=== PATIENT | female | born 1955 | race Hispanic/Latino ===

== ENCOUNTER 2016-09-29 10:06 | Emergency (ER) | payer MEDICARE ==
[2016-09-29 10:51] LABS: Basophils % (Auto) 0.8 % (0.0-1.8); Eosinophils % (Auto) 4.7 % (0.0-4.3); Hemoglobin 12.8 gm/dl (10.1-14.3); Mean Corpuscular HGB Conc 34 % (30-34); Mean Corpuscular Hemoglobin 32 pg (28-32); Mean Corpuscular Volume 94 fl (79-97); Platelet Count 254 K/mm3 (140-440); Red Blood Count 4.03 M/mm3 (3.65-5.03); Red Cell Distribution Width 13.3 % (13.2-15.2); White Blood Count 8.6 K/mm3 (4.5-11.0)
[2016-09-29 11:10] LABS: Bacteria,Urine 1+ /HPF (Negative); Bilirubin,Urine NEG (Negative); Blood,Urine NEG (Negative); Ketones,Urine NEG (Negative); Leukocyte Esterase,Urine NEG (Negative); Nitrite,Urine NEG (Negative); Protein,Urine <15 mg/dL mg/dL (Negative); RBC,Urine < 1.0 /HPF (0.0-6.0); Urobilinogen,Urine < 2.0 mg/dL (<2.0)
[2016-09-29] MEDS ORDERED: DELTASONE PO ONE (11:33)
[2016-09-29] MEDS ORDERED: TORADOL IM ONE (11:33)
[2016-09-29] MEDS ORDERED: CATAPRES PO ONE (11:33)
--- NOTE | 2016-09-29 12:12 | Emergency Department Report ---
ED Back Pain/Injury HPI - General Chief Complaint: Back Pain/Injury Stated Complaint: NECK AND BACK PAIN Time Seen by Provider: 09/29/16 11:08 Source: patient Limitations: No Limitations - History of Present Illness Initial Comments: Reports she is not always taking her prescribed Morphine Complaint: back pain -: Gradual, week(s) Similar Symptoms Previously: Yes Place: home Radiation: none Severity: mild Severity scale (0 -10): 2 Quality: aching Consistency: intermittent Improves With: none Worsens With: movement Context: turning/twisting Associated Symptoms: denies: confusion, weakness, chest pain, numbness, difficulty walking, cough, difficulty urinating, diaphoresis, incontinence, constipation, headaches, abdominal pain, loss of appetite, malaise, nausea/ vomiting, rash, seizure, shortness of breath, syncope - Related Data Home Medications Medication Instructions Recorded Confirmed Last Taken ALPRAZolam [Alprazolam] 2 mg PO TID PRN 03/26/13 09/29/16 09/28/16 Aspirin [Baby Aspirin] 81 mg PO DAILY 03/26/13 09/29/16 09/29/16 Morphine Sulfate [Morphine Sulfate 15 mg PO QID 03/26/13 09/29/16 09/29/16 ER] Previous Rx's Medication Instructions Recorded Last Taken Type Lisinopril [Zestril TAB] 40 mg PO QDAY #90 tablet 12/20/13 09/29/16 Rx predniSONE [Deltasone] 20 mg PO QDAY #3 tab 09/29/16 Unknown Rx Allergies Allergy/AdvReac Type Severity Reaction Status Date / Time codeine AdvReac Itching Verified 03/26/13 10:59 ED Review of Systems ROS: Stated complaint: NECK AND BACK PAIN Other details as noted in HPI Other: GENERAL: No weight change, fatigue, weakness, fever, chills, or night sweats SKIN: No changes in skin or hair, no itching, no rashes, no jaundice HEAD: No trauma, headache, or visual changes EYES: No blurriness, tearing, itching, acute visual loss, conjunctival discoloration, or scleral icterus EARS: No hearing loss, tinnitus, vertigo, or earache NOSE: No rhinorrhea, stuffiness, sneezing, itching, or epistaxis MOUTH: No bleeding gums, hoarseness, sore throat, or swelling CARDIAC: No new murmur, chest pain, palpitations, dyspnea on exertion, orthopnea , PND, or edema RESPIRATORY: No shortness of breath, wheeze, cough, sputum production, hemoptysis, pneumonia, asthma, bronchitis, or emphysema GI: No change in appetite, nausea, vomiting, dysphagia, change in bowel frequency, diarrhea, constipation, bleeding, hematemesis, melena, hematochezia, or abdominal pain URINARY: No frequency, urgency, polyuria, dysuria, hematuria, or incontinence MUSCULOSKELETAL: exacerbation of Back Pain chronic NEUROLOGIC: No loss of sensation, numbness, tingling, tremors, weakness, paralysis, seizures HEMATOLOGIC: No anemia, easy bruising, bleeding, petechiae, or purpura ENDOCRINE: No hot or cold intolerance, sweating, polyuria, polydipsia or, polyphagia no thyroid problems PSYCHIATRIC: No change in mood, no anxiety, no depression ED Past Medical Hx - Past Medical History Previous Medical History?: Yes Hx Hypertension: Yes Hx Heart Attack/AMI: Yes Hx Arthritis: Yes Hx Asthma: Yes Hx COPD: Yes Additional medical history: cyst right kidney, herniated l5 and s1 - Surgical History Past Surgical History?: Yes Hx Coronary Stent: Yes (1 cardiac stent) - Social History Smoking Status: Current Every Day Smoker Substance Use Type: Alcohol, Prescribed - Medications Home Medications: Home Medications Medication Instructions Recorded Confirmed Last Taken Type ALPRAZolam [Alprazolam] 2 mg PO TID PRN 03/26/13 09/29/16 09/28/16 History Aspirin [Baby Aspirin] 81 mg PO DAILY 03/26/13 09/29/16 09/29/16 History Morphine Sulfate [Morphine Sulfate 15 mg PO QID 03/26/13 09/29/16 09/29/16 History ER] Lisinopril [Zestril TAB] 40 mg PO QDAY #90 tablet 12/20/13 09/29/16 09/29/16 Rx predniSONE [Deltasone] 20 mg PO QDAY #3 tab 09/29/16 Unknown Rx ED Physical Exam - General Limitations: No Limitations - Other Other exam information: GENERAL: Patient in no acute distress HEAD: Normocephalic, atraumatic EYES: PERRLA, EOM intact, no scleral icterus, no conjunctival hemorrhage, visual rea and acuity wnl, NOSE: No tenderness, discharge, sinus tenderness MOUTH: No erythema, bleeding, exudate HEART: Regular rate and rhythm, no murmur, S1-S2 are auscultated, pulses are symmetric LUNGS: No wheezing, rales, rhonchi, bilateral breath sounds ABDOMEN: Normal bowel sounds, no tenderness, no rebound, no guarding, no masses , no CVA tenderness MUSCULOSKELETAL: Normal joint range of motion, no redness, no swelling, no tenderness NEUROLOGIC: Alert grossly intact PSYCHIATRIC: No homicidal or suicidal ideation, no anxiety, no depression, no hallucinations SKIN: Skin is warm and dry, no wounds, no rashes ED Course Vital Signs 09/29/16 09/29/16 09/29/16 10:14 10:58 11:00 Temperature 98.1 F 97.7 F Pulse Rate 67 60 Respiratory 18 18 Rate Blood Pressure 213/117 219/93 210/108 Blood Pressure 219/93 [Left] O2 Sat by Pulse 100 99 Oximetry 09/29/16 09/29/16 09/29/16 11:10 11:20 11:30 Temperature Pulse Rate Respiratory Rate Blood Pressure 210/108 212/112 184/90 Blood Pressure [Left] O2 Sat by Pulse 100 100 99 Oximetry 09/29/16 09/29/16 09/29/16 11:40 11:45 11:50 Temperature Pulse Rate 63 Respiratory 18 Rate Blood Pressure 184/90 184/90 222/100 Blood Pressure [Left] O2 Sat by Pulse 99 100 Oximetry 09/29/16 09/29/16 09/29/16 12:00 12:10 12:20 Temperature Pulse Rate Respiratory Rate Blood Pressure 218/110 218/110 183/96 Blood Pressure [Left] O2 Sat by Pulse 100 99 99 Oximetry 09/29/16 09/29/16 09/29/16 12:30 12:40 12:50 Temperature Pulse Rate Respiratory Rate Blood Pressure 125/68 125/68 137/64 Blood Pressure [Left] O2 Sat by Pulse 98 99 98 Oximetry 09/29/16 09/29/16 13:00 13:10 Temperature Pulse Rate 54 L Respiratory 16 Rate Blood Pressure 121/71 121/71 Blood Pressure 121/71 [Left] O2 Sat by Pulse 97 96 Oximetry ED Medical Decision Making - Lab Data Result diagrams: 09/29/16 10:28 09/29/16 10:28 - Medical Decision Making Patient comfortable. Updated with results. Plan discharge with outpatient follow-up. Patient agrees with plan and will return if symptoms worsen. Critical care attestation.: If time is entered above; I have spent that time in minutes in the direct care of this critically ill patient, excluding procedure time. ED Disposition Clinical Impression: Lumbosacral pain, Hypertensive urgency Disposition: - TO HOME OR SELFCARE Is pt being admited?: No Condition: Stable Instructions: Low Back Strain (ED), Hypertension (ED) Prescriptions: predniSONE [Deltasone] 20 mg PO QDAY #3 tab Referrals: PRIMARY CARE, [Primary Care Provider] - 2-3 Days Time of Disposition: 12:11
[2016-09-29 12:47] LABS: Alanine Aminotransferase 21 units/L (7-56); Albumin 4.4 g/dL (3.9-5); Albumin/Globulin Ratio 1.6 %; Alkaline Phosphatase 63 units/L (35-129); Anion Gap 20 mmol/L; BUN/Creatinine Ratio 13.33; Blood Urea Nitrogen 8 mg/dL (7-17); Calcium 9.8 mg/dL (8.4-10.2); Carbon Dioxide 26 mmol/L (22-30); Chloride 96.2 mmol/L (98-107); Glucose 88 mg/dL (65-100); Potassium 4.7 mmol/L (3.6-5.0); Sodium 137 mmol/L (137-145); Total Protein 7.2 g/dL (6.3-8.2)
[2016-09-29 14:31] VITALS: BP 121/71
== END 2016-09-29 13:30 | disposition home or self-care (01) ==
LOC: ED 10:06
DX: M54.5 Low back pain (principal); I10 Essential (primary) hypertension; F17.200 Nicotine dependence, unspecified, uncomplicated; I25.2 Old myocardial infarction; M19.90 Unspecified osteoarthritis, unspecified site; J44.9 Chronic obstructive pulmonary disease, unspecified; J45.909 Unspecified asthma, uncomplicated; Z95.1 Presence of aortocoronary bypass graft; Z79.82 Long term (current) use of aspirin; Z88.6 Allergy status to analgesic agent
CPT/HCPCS: 36415; 80053; 81001; 84484; 85025; 96372; 99284; J1885; J7512